=== PATIENT | male | born 1955 | race Caucasian/White ===

== ENCOUNTER → 2016-09-23 | Outpatient (REF) ==
[~2016-09-23] MED LIST: CEFTIN500 MG PO; COLACE 100100 MG/CAP PO; COUMADIN 5MG5 MG/TAB PO; COUMADIN 77.5 MG/TAB PO; CRANBERRY500 M3 PO; DEPAKOTE500 MG PO; DITROPAN 5MG TAB5 MG PO; EFFEXOR-XR150 MG PO; GENTLE LAXATIVE10 MG RC; HYTRIN 5MG C5 MG/CAP PO; LIORESAL20 MG PO; METAMUCIL3.4 GM/Dos PO; MILK OF MA400 MG/52 PO; MIRALAX PA17 GM/Dose PO; PRAVACHOL 40MG40 MG PO; ROXICODONE 55 MG/TAB PO; SYNTHROID0.075 MG/T PO; TOPAMAX 25MG25 M1 PO; TYLENOL 325MG325 MG PO; TYLENOL 500MG500 MG PO; VITAMIN C500 MG PO; ZANAFLEX 4MG TAB4 MG PO; ZYRTEC 10MG10 MG PO
== END ==
LOC: ZLAB.WCH 10:26
DX: Z01.89 Encounter for other specified special examinations (principal)

== ENCOUNTER 2016-10-01 14:15 | Inpatient (IN) | payer MEDICARE, OTHER ==
[~2016-10-01] VITALS: Ht 177.8 cm; Wt 101.3 kg
[2016-10-01] VITALS (10 sets, daily range): BP systolic 98–127; BP diastolic 53–80; PULSE 100–110; TEMP 97.8–98.3
[2016-10-01] MEDS ORDERED: COUMADIN 5MG5 MG/TAB PO (14:22)
[2016-10-01] MEDS ORDERED: CRANBERRY500 M3 PO (14:23)
[2016-10-01] MEDS ORDERED: COUMADIN 77.5 MG/TAB PO (14:23)
[2016-10-01] MEDS ORDERED: DEPAKOTE500 MG PO (14:24)
[2016-10-01] MEDS ORDERED: EFFEXOR-XR150 MG PO (14:25)
[2016-10-01] MEDS ORDERED: METAMUCIL3.4 GM/Dos PO (14:26)
[2016-10-01] MEDS ORDERED: MIRALAX PA17 GM/Dose PO (14:26)
[2016-10-01] MEDS ORDERED: SYNTHROID0.075 MG/T PO (14:27)
[2016-10-01] MEDS ORDERED: PRAVACHOL 40MG40 MG PO (14:27)
[2016-10-01] MEDS ORDERED: VITAMIN C500 MG PO (14:29)
[2016-10-01] MEDS ORDERED: HYTRIN 5MG C5 MG/CAP PO (14:29)
[2016-10-01] MEDS ORDERED: ZYRTEC 10MG10 MG PO (14:31)
[2016-10-01] MEDS ORDERED: ZANAFLEX 4MG TAB4 MG PO (14:31)
[2016-10-01] MEDS ORDERED: TOPAMAX 25MG25 M1 PO ×2 (14:32)
[2016-10-01] MEDS ORDERED: CEFTIN500 MG PO (14:32)
[2016-10-01] MEDS ORDERED: LIORESAL20 MG PO (14:33)
[2016-10-01] MEDS ORDERED: TYLENOL 500MG500 MG PO (14:33)
[2016-10-01] MEDS ORDERED: GENTLE LAXATIVE10 MG RC (14:34)
[2016-10-01] MEDS ORDERED: COLACE 100100 MG/CAP PO (14:35)
[2016-10-01] MEDS ORDERED: MILK OF MA400 MG/52 PO (14:35)
[2016-10-01] MEDS ORDERED: TYLENOL 325MG325 MG PO (14:36)
[2016-10-01] MEDS ORDERED: DITROPAN 5MG TAB5 MG PO (14:36)
[2016-10-01] MEDS ORDERED: ROXICODONE 55 MG/TAB PO (15:28)
[2016-10-01 15:35] LABS: MEAN CELL VOLUME 90 fl (80.0-100.0); MEAN CORPUSCULAR HGB CONC 31 g/dl (33.0-37.0); MEAN PLATELET VOLUME 9.2 fl (7.4-10.4); PLATELET COUNT 618 K/mm3 (130-400); RED BLOOD COUNT 3.52 M/mm3 (4.20-5.60); REDCELL DISTRIBUTION WIDTH-CV 15.9 % (11.5-14.5)
[2016-10-01 15:44] LABS: HEMATOCRIT 31.7 % (42.0-52.0); HEMOGLOBIN 9.8 g/dl (13.5-18.0); MEAN CORPUSCULAR HEMOGLOBIN 28 pg (27.0-31.0); WHITE BLOOD COUNT 20.4 K/mm3 (4.8-10.8)
[2016-10-01 15:51] LABS: INR 5.1 (0.8-3.0); PROTHROMBIN TIME 59.9 SECONDS (9.7-12.8)
[2016-10-01 16:11] LABS: CALCIUM 9.5 mg/dL (8.4-10.2); CREATININE, serum 2.89 mg/dL (0.66-1.25)
[2016-10-02 02:06] VITALS: BP 105/67; PULSE 105; TEMP 97.4
[2016-10-02 06:00] VITALS: BP 103/64; PULSE 104; TEMP 97.5
[2016-10-02 09:14] VITALS: BP 124/81; PULSE 103; TEMP 96.5
[2016-10-02 12:58] VITALS: BP 97/70; PULSE 112
[2016-10-02 15:57] LABS: INR 7.6 (0.8-3.0); PROTHROMBIN TIME 89.4 SECONDS (9.7-12.8)
[2016-10-02 16:10] LABS: CALCIUM 8.3 mg/dL (8.4-10.2); CREATININE, serum 3.53 mg/dL (0.66-1.25); POTASSIUM 5.6 mmol/L (3.4-5.0)
[2016-10-02 18:03] VITALS: BP 131/90; PULSE 95; TEMP 96.3
[2016-10-02 22:14] VITALS: BP 121/84; PULSE 51; TEMP 98
[2016-10-03 02:00] VITALS: BP 115/70; PULSE 104; TEMP 98.3
[2016-10-03 05:16] VITALS: BP 129/80; PULSE 101; TEMP 97.7
[2016-10-03 09:42] VITALS: BP 148/84; PULSE 102; TEMP 98.3
[2016-10-03 10:01] LABS: MEAN CELL VOLUME 91 fl (80.0-100.0); MEAN CORPUSCULAR HGB CONC 31 g/dl (33.0-37.0); MEAN PLATELET VOLUME 9.2 fl (7.4-10.4); RED BLOOD COUNT 3.51 M/mm3 (4.20-5.60); REDCELL DISTRIBUTION WIDTH-CV 15.9 % (11.5-14.5)
[2016-10-03 10:04] LABS: INR 1.5 (0.8-3.0); PROTHROMBIN TIME 17.3 SECONDS (9.7-12.8)
[2016-10-03 10:08] LABS: HEMATOCRIT 31.8 % (42.0-52.0); HEMOGLOBIN 9.8 g/dl (13.5-18.0); MEAN CORPUSCULAR HEMOGLOBIN 28 pg (27.0-31.0); PLATELET COUNT 721 K/mm3 (130-400); WHITE BLOOD COUNT 29.9 K/mm3 (4.8-10.8)
[2016-10-03 10:13] LABS: ADJUSTED CALCIUM 9.2 mg/dL (8.4-10.2); BILIRUBIN,TOTAL 0.4 mg/dL (0.0-1.0); CALCIUM 8.4 mg/dL (8.4-10.2); CREATININE, serum 2.71 mg/dL (0.66-1.25); TOTAL PROTEIN 7.1 gm/dL (6.4-8.2)
[2016-10-03 13:13] VITALS: BP 120/80; PULSE 104; TEMP 98.5
[2016-10-03 17:19] VITALS: BP 117/72; PULSE 100; TEMP 98.1
[2016-10-03 21:26] VITALS: BP 119/63; PULSE 78; TEMP 97.5
[2016-10-04 01:13] VITALS: BP 138/77; PULSE 90; TEMP 98.9
[2016-10-04 04:42] VITALS: BP 132/66; PULSE 80; TEMP 97.6
[2016-10-04 09:59] VITALS: BP 120/64; PULSE 82; TEMP 98
[2016-10-04 10:30] LABS: MEAN CELL VOLUME 91 fl (80.0-100.0); MEAN CORPUSCULAR HGB CONC 31 g/dl (33.0-37.0); MEAN PLATELET VOLUME 9.1 fl (7.4-10.4); RED BLOOD COUNT 2.93 M/mm3 (4.20-5.60); WHITE BLOOD COUNT 19.5 K/mm3 (4.8-10.8)
[2016-10-04 10:33] LABS: HEMATOCRIT 26.7 % (42.0-52.0); HEMOGLOBIN 8.2 g/dl (13.5-18.0); MEAN CORPUSCULAR HEMOGLOBIN 28 pg (27.0-31.0); PLATELET COUNT 602 K/mm3 (130-400)
[2016-10-04 13:48] VITALS: BP 107/54; PULSE 99
== END 2016-10-04 15:55 | DRG 699 ==
LOC: SDCO 14:15 → SURG 14:15 → SDCO 14:34 → SURG 14:35 → SDCO 18:00 → SURG 10-02 09:00
PROVIDERS: Internal Medicine Cardiovascular Disease; Urology
PROC: 0TCB8ZZ Extirpation of Matter from Bladder, Via Natural or Artificial Opening Endoscopic (ICD-10-PCS; principal; 2016-10-01 18:00)
DX: N32.89 Other specified disorders of bladder (principal); N17.9 Acute kidney failure, unspecified; R31.0 Gross hematuria; E87.5 Hyperkalemia; G35 Multiple sclerosis; Z66 Do not resuscitate; F31.9 Bipolar disorder, unspecified; F03.90 Unspecified dementia, unspecified severity, without behavioral disturbance, psychotic disturbance, mood disturbance, and anxiety
CPT/HCPCS: OP; 99222; 99233-AI; A9284; G0378; G0379; J0690; J2405; J2704; J2765; J3010; J7120

== ENCOUNTER 2016-10-07 10:44 | Emergency (ER) | payer MEDICARE ==
[~2016-10-07] VITALS: Ht 177.8 cm; Wt 102.3 kg
[2016-10-07] VITALS (9 sets, daily range): BP systolic 118–1243; BP diastolic 65–78; PULSE 94–98; TEMP 98.8–99.3
[2016-10-07 11:41] LABS: MEAN CELL VOLUME 95 fl (80.0-100.0); MEAN CORPUSCULAR HGB CONC 30 g/dl (33.0-37.0); MEAN PLATELET VOLUME 8.8 fl (7.4-10.4); PLATELET COUNT 502 K/mm3 (130-400); RED BLOOD COUNT 2.63 M/mm3 (4.20-5.60); REDCELL DISTRIBUTION WIDTH-CV 17.1 % (11.5-14.5); WHITE BLOOD COUNT 16.5 K/mm3 (4.8-10.8)
[2016-10-07 11:43] LABS: HEMATOCRIT 25.1 % (42.0-52.0); HEMOGLOBIN 7.4 g/dl (13.5-18.0); MEAN CORPUSCULAR HEMOGLOBIN 28 pg (27.0-31.0)
[2016-10-07 11:44] LABS: ADD PATHOLOGY DIFF REVIEW NO
[2016-10-07 11:56] LABS: BAND 11 % (0-10); BASOPHIL 1 % (0-2); EOSINOPHIL 1 % (0-4); METAMYELOCYTE 2 % (0-0); NEUTROPHILS 69 % (42.0-75.2); PLATELET ESTIMATE INCREASED (NORMAL); TOTAL CELLS COUNTED 100
[2016-10-07 11:59] LABS: ADJUSTED CALCIUM 9.8 mg/dL (8.4-10.2); ALBUMIN 2.7 gm/dL (3.5-5.0); BILIRUBIN,TOTAL 0.5 mg/dL (0.0-1.0); CALCIUM 8.8 mg/dL (8.4-10.2); CREATININE, serum 0.8 mg/dL (0.66-1.25); POTASSIUM 4.6 mmol/L (3.4-5.0); TOTAL PROTEIN 6.4 gm/dL (6.4-8.2)
[2016-10-07 12:38] LABS: INR 1.3 (0.8-3.0); PROTHROMBIN TIME 14.1 SECONDS (9.7-12.8)
== END 2016-10-07 19:30 | disposition home or self-care (01) ==
LOC: COL.ER 10:44
PROVIDERS: Family Medicine
DX: D64.9 Anemia, unspecified (principal); R53.1 Weakness
CPT/HCPCS: P9016

== ENCOUNTER → 2016-10-09 | Outpatient (REF) | LOC: ZLAB.WCH 10:41 | DX: Z01.89 Encounter for other specified special examinations (principal) ==

== ENCOUNTER → 2016-11-29 | Outpatient (CLI) | payer MEDICARE, OTHER | LOC: WCC 08:43 | DX: L89.899 Pressure ulcer of other site, unspecified stage (principal); G35 Multiple sclerosis | CPT/HCPCS: 13919; 13973; 17717; A6199; A6212; G0463 ==

== ENCOUNTER → 2016-12-06 | Outpatient (CLI) | payer MEDICARE, OTHER | LOC: WCC 09:48 | DX: L89.619 Pressure ulcer of right heel, unspecified stage (principal); L89.529 Pressure ulcer of left ankle, unspecified stage; G35 Multiple sclerosis | CPT/HCPCS: 13919; 21064; 27517; A6021; A6207; G0463 ==

== ENCOUNTER → 2016-12-20 | Outpatient (CLI) | payer MEDICARE | LOC: WCC 12-13 09:33 | DX: Z00.00 Encounter for general adult medical examination without abnormal findings (principal) ==

== ENCOUNTER → 2016-12-27 | Outpatient (CLI) | payer MEDICARE | LOC: WCC 09:05 | DX: Z01.89 Encounter for other specified special examinations (principal) ==

== ENCOUNTER → 2017-01-03 | Outpatient (CLI) | payer MEDICARE | LOC: WCC 10:50 | DX: Z01.89 Encounter for other specified special examinations (principal) ==

== ENCOUNTER → 2017-01-10 | Outpatient (CLI) | payer MEDICARE, OTHER | LOC: WCC 10:41 | DX: L89.619 Pressure ulcer of right heel, unspecified stage (principal); L89.529 Pressure ulcer of left ankle, unspecified stage; G35 Multiple sclerosis | CPT/HCPCS: 13919; 17717; 27517; A6207; A6212; G0463 ==

== ENCOUNTER → 2017-01-16 | Outpatient (CLI) | payer MEDICARE | LOC: WCC 12:12 | DX: L89.529 Pressure ulcer of left ankle, unspecified stage (principal); G35 Multiple sclerosis | CPT/HCPCS: A6207; A6212; Q4172 ==

== ENCOUNTER → 2017-01-23 | Outpatient (CLI) | payer MEDICARE, OTHER | LOC: WCC 09:38 | DX: L89.619 Pressure ulcer of right heel, unspecified stage (principal); L89.529 Pressure ulcer of left ankle, unspecified stage; G35 Multiple sclerosis; L08.9 Local infection of the skin and subcutaneous tissue, unspecified; Z79.01 Long term (current) use of anticoagulants | CPT/HCPCS: 13919; 17717; 27516; 50001; A6207; A6212; Q4172 ==

== ENCOUNTER → 2017-01-30 | Outpatient (CLI) | payer MEDICARE | LOC: WCC 10:32 | DX: L89.619 Pressure ulcer of right heel, unspecified stage (principal); L89.529 Pressure ulcer of left ankle, unspecified stage; G35 Multiple sclerosis; Z99.3 Dependence on wheelchair | CPT/HCPCS: 13919; 17717; 50001; A6212; Q4172 ==

== ENCOUNTER → 2017-02-06 | Outpatient (CLI) | payer MEDICARE | LOC: WCC 12:47 | DX: L89.619 Pressure ulcer of right heel, unspecified stage (principal); L89.529 Pressure ulcer of left ankle, unspecified stage; G35 Multiple sclerosis | CPT/HCPCS: 13919; 17717; 27516; 50001; A6207; A6212; Q4172 ==

== ENCOUNTER → 2017-02-13 | Outpatient (CLI) | payer MEDICARE | LOC: WCC 09:24 | DX: L89.619 Pressure ulcer of right heel, unspecified stage (principal); L89.529 Pressure ulcer of left ankle, unspecified stage; G35 Multiple sclerosis | CPT/HCPCS: 13919; 17717; 27516; 50001; A6207; A6212; Q4172 ==

== ENCOUNTER → 2017-02-20 | Outpatient (CLI) | payer MEDICARE | LOC: WCC 09:59 | DX: L89.619 Pressure ulcer of right heel, unspecified stage (principal); L89.529 Pressure ulcer of left ankle, unspecified stage; G35 Multiple sclerosis | CPT/HCPCS: 13919; 17717; 21064; A6021; A6212; G0463 ==

== ENCOUNTER → 2017-02-28 | Outpatient (CLI) | payer MEDICARE | LOC: WCC 11:25 | DX: Z01.89 Encounter for other specified special examinations (principal) ==

== ENCOUNTER → 2017-03-10 | Outpatient (CLI) | payer MEDICARE | LOC: WCC 08:09 | DX: L89.619 Pressure ulcer of right heel, unspecified stage (principal); L89.529 Pressure ulcer of left ankle, unspecified stage; G35 Multiple sclerosis | CPT/HCPCS: 13919; 18867; 27510; A6197; A6209; G0463 ==

== ENCOUNTER → 2017-03-17 | Outpatient (CLI) | payer MEDICARE | LOC: WCC 11:20 | DX: L89.899 Pressure ulcer of other site, unspecified stage (principal) | CPT/HCPCS: G0463 ==

== ENCOUNTER → 2017-03-31 | Outpatient (CLI) | payer MEDICARE | LOC: WCC 12:48 | DX: L89.529 Pressure ulcer of left ankle, unspecified stage (principal); L89.619 Pressure ulcer of right heel, unspecified stage; G35 Multiple sclerosis | CPT/HCPCS: G0463 ==

== ENCOUNTER → 2017-04-14 | Outpatient (CLI) | payer MEDICARE | LOC: WCC 09:42 | DX: L89.619 Pressure ulcer of right heel, unspecified stage (principal); L89.529 Pressure ulcer of left ankle, unspecified stage; G35 Multiple sclerosis | CPT/HCPCS: G0463 ==

== ENCOUNTER → 2017-04-28 | Outpatient (CLI) | payer MEDICARE | LOC: WCC 12:42 | DX: L89.529 Pressure ulcer of left ankle, unspecified stage (principal); G35 Multiple sclerosis | CPT/HCPCS: G0463 ==

== ENCOUNTER → 2017-05-07 | Outpatient (CLI) | payer MEDICARE | LOC: WCC 05-05 13:40 | DX: L89.529 Pressure ulcer of left ankle, unspecified stage (principal); S81.002A Unspecified open wound, left knee, initial encounter; G35 Multiple sclerosis | CPT/HCPCS: 17716; 27510; A6197; A6212; G0463 ==

== ENCOUNTER → 2017-06-10 | Outpatient (CLI) | payer MEDICARE | LOC: ZCOL.LAB 15:19 | DX: L89.613 Pressure ulcer of right heel, stage 3 (principal) ==

== ENCOUNTER → 2017-10-13 | Outpatient (REF) | LOC: ZLAB.WCH 17:53 | DX: Z01.89 Encounter for other specified special examinations (principal) ==

== ENCOUNTER → 2018-04-09 | Outpatient (REF) ==
[2018-04-09 10:16] LABS: THYROID STIMULATING HORMONE 3.98 uIU/mL (0.465-4.680)
== END ==
LOC: ZLAB.WCH 09:32
PROVIDERS: Family Medicine
DX: Z01.89 Encounter for other specified special examinations (principal)